=== PATIENT | male | born 1990 | race African-American/Black ===

== ENCOUNTER 2022-03-09 12:08 | Emergency (ER) | payer MEDICAID, OTHER ==
[~2022-03-09] VITALS: Ht 167.6 cm; Wt 85.0 kg
[2022-03-09 12:15] VITALS: BP 131/81
[2022-03-09] MEDS ORDERED: TETANUS, DIPHTHERIA, PERTUSSIS VAC/PF 0.5ML (>10YR OLD) IM ONE (13:00)
[2022-03-09] MEDS ORDERED: IBUPROFEN 600MG TABLET PO ONE (13:00)
[2022-03-09] MEDS ORDERED: LIDOCAINE HCL/PF 1% 10 MG/ML 5ML VIAL INFIL ONE (13:00)
[2022-03-09] MEDS ORDERED: BACITRACIN ZINC OINT UDPKT TOP ONE (13:00)
== END 2022-03-09 14:38 ==
LOC: ER 12:08
DX: S61.210A Laceration without foreign body of right index finger without damage to nail, initial encounter (principal); Y93.89 Activity, other specified; Y92.9 Unspecified place or not applicable; Z02.79 Encounter for issue of other medical certificate; Z91.010 Allergy to peanuts
CPT/HCPCS: 12002; 90471; 90715; 99283; J3490

== ENCOUNTER 2022-03-15 23:35 | Emergency (ER) | payer MEDICAID, OTHER ==
[~2022-03-15] VITALS: Ht 167.6 cm; Wt 89.7 kg
[2022-03-15 23:46] VITALS: BP 116/66
== END 2022-03-16 01:50 | disposition home or self-care (01) ==
LOC: ER 23:35
DX: Z48.02 Encounter for removal of sutures (principal); Z59.00 Homelessness unspecified; Z91.010 Allergy to peanuts
CPT/HCPCS: 99281; Z7610